=== PATIENT | male | born 1955 | race Caucasian/White ===

== ENCOUNTER 2017-08-19 06:39 | Day surgery (SDC) | payer BC ==
[~2017-08-19] VITALS: Ht 177.8 cm; Wt 101.3 kg
[~2017-08-19 06:39] MED LIST: NO HOME MEDICATIONS; NORCO 325 MG-51 TAB PO
[2017-08-19 07:03] VITALS: BP 147/82; PULSE 66; TEMP 97.3
[2017-08-19] MEDS ORDERED: PRAVACHOL 20MG20 MG PO (07:23)
[2017-08-19 10:42] VITALS: BP 115/76; PULSE 81; TEMP 97.7
[2017-08-19 10:57] VITALS: BP 108/95; PULSE 71
[2017-08-19 11:12] VITALS: BP 125/82; PULSE 68
[2017-08-19 11:27] VITALS: BP 127/86; PULSE 79
[2017-08-19 11:57] VITALS: BP 126/80; PULSE 83
== END 2017-08-19 12:35 | disposition home or self-care (01) ==
LOC: SDCO 06:39
DX: M75.122 Complete rotator cuff tear or rupture of left shoulder, not specified as traumatic (principal); M24.112 Other articular cartilage disorders, left shoulder; M19.90 Unspecified osteoarthritis, unspecified site; E78.00 Pure hypercholesterolemia, unspecified; G89.18 Other acute postprocedural pain; Z87.891 Personal history of nicotine dependence; Z89.022 Acquired absence of left finger(s); Z83.3 Family history of diabetes mellitus; Z85.828 Personal history of other malignant neoplasm of skin; Z82.49 Family history of ischemic heart disease and other diseases of the circulatory system; Z82.61 Family history of arthritis
CPT/HCPCS: C1713; J0171; J0690; J1100; J2250; J2405; J2704; J2765; J2795; J3010; J7120

== ENCOUNTER 2019-05-11 12:45 | Emergency (ER) | payer BC, MEDICARE ==
[~2019-05-11] VITALS: Ht 177.8 cm; Wt 102.3 kg
[~2019-05-11 12:45] MED LIST changes: +PRAVACHOL 20MG20 MG PO
[2019-05-11 13:00] VITALS: TEMP 96.8
[2019-05-11] MEDS ORDERED: PERCOCET 325 MG1 TA2 PO (13:03)
[2019-05-11 13:13] LABS: COLLECTION METHOD CLEAN CATCH
[2019-05-11 13:22] LABS: BASO # 0.1 (0.0-0.2); BASO % 0.5 % (0.0-2.0); EOS % 0.2 % (0-4.0); GRAN # 10.9 (1.4-6.5); GRAN % 86.9 % (42.2-75.2); HEMATOCRIT 43.5 % (42.0-52.0); HEMOGLOBIN 14.7 g/dl (13.5-18.0); LYMPH % 8.1 % (20.0-51.0); MEAN CELL VOLUME 92 fl (80.0-100.0); MEAN CORPUSCULAR HEMOGLOBIN 31 pg (27.0-31.0); MEAN CORPUSCULAR HGB CONC 34 g/dl (33.0-37.0); MEAN PLATELET VOLUME 10.5 fl (7.4-10.4); MONO # 0.5 (0.1-0.6); MONO % 3.9 % (1.7-9.3); PLATELET COUNT 207 K/mm3 (130-400); RED BLOOD COUNT 4.73 M/mm3 (4.20-5.60); REDCELL DISTRIBUTION WIDTH-CV 13.1 % (11.5-14.5)
[2019-05-11 13:27] LABS: MUCOUS Present /lpf; PH 5 (5-8); SQUAMOUS EPITHELIAL None Seen /hpf; URINE APPEARANCE Clear; URINE BACTERIA None Seen /hpf; URINE BILIRUBIN Negative (NEGATIVE); URINE BLOOD 2+ (NEGATIVE); URINE COLOR Yellow; URINE GLUCOSE Negative (NEGATIVE); URINE KETONE Negative (NEGATIVE); URINE LEUKOCYTE ESTERASE Negative (NEGATIVE); URINE NITRATE Negative (NEGATIVE); URINE PROTEIN(semi-quant) Negative (NEGATIVE); URINE UROBILINOGEN Negative (NEGATIVE)
[2019-05-11 13:37] LABS: ALANINE AMINOTRANSFERASE 48 U/L (21-72); ALBUMIN 4.5 gm/dL (3.5-5.0); ALKALINE PHOSPHATASE 72 U/L (50-136); ANION GAP 12 mmol/L (7-16); AST,SGOT 32 U/L (15-37); BILIRUBIN,TOTAL 0.6 mg/dL (0.0-1.0); BLOOD UREA NITROGEN 15 mg/dL (9-20); CALCIUM 9.5 mg/dL (8.4-10.2); CARBON DIOXIDE 24 mmol/L (22-30); CHLORIDE 108 mmol/L (98-107); CREATININE, serum 1.31 (0.66-1.25); GLUCOSE 132 mg/dL (74-106); LIPASE 63 U/L (23-300); POTASSIUM 4.3 mmol/L (3.4-5.0); SODIUM 144 mmol/L (137-145); TOTAL PROTEIN 7.7 gm/dL (6.4-8.2)
[2019-05-11 13:38] LABS: C-REACTIVE PROTEIN < 0.5 mg/dL (0.0-0.9)
[2019-05-11] MEDS ORDERED: NORCO 325 MG-51 TAB PO (13:59)
[2019-05-11 14:42] VITALS: BP 138/80; PULSE 67
== END 2019-05-11 14:45 | disposition home or self-care (01) ==
LOC: COL.ER 12:45
PROVIDERS: Family Medicine
DX: N23 Unspecified renal colic (principal); Z87.442 Personal history of urinary calculi
CPT/HCPCS: J1885; J2405; J7030

== ENCOUNTER 2021-01-05 08:57 | Day surgery (SDC) | payer BC ==
[~2021-01-05] VITALS: Ht 177.8 cm; Wt 100.8 kg
[~2021-01-05 08:57] MED LIST changes: +PERCOCET 325 MG1 TA2 PO
[2021-01-05] MEDS ORDERED: ZYLOPRIM 100MG100 MG PO (09:17)
[2021-01-05 09:31] VITALS: BP 144/95; PULSE 66; TEMP 97.8
[2021-01-05 10:55] VITALS: BP 113/72; PULSE 79; TEMP 97.2
--- NOTE | 2021-01-05 10:55 | NUR ---
The patient arrived back to [place] [facility] from the endoscopy suite at this time. The patient alert and oriented and ambulated from the cart to the recliner in his room with the stand by assistance of one nurse and appeared to tolerate the activity well. Post procedure vital signs were started at this time. The patient reqeusts to try some cranberry juice at this time. Call light is within reach. Will continue to monitor the patient.
[2021-01-05 11:10] VITALS: BP 101/65; PULSE 65
--- NOTE | 2021-01-05 11:10 | NUR ---
The patient's was brought back to be at his bedside. The patient appears to be tolerating the juice well and requests more at this time. Call light remains within reach. Will continue to monitor the patient.
[2021-01-05 11:25] VITALS: BP 116/80; PULSE 62
--- NOTE | 2021-01-05 11:25 | NUR ---
Dr. Jerry is at the patient's bedside discussing the findings of the procedure with the patient and his . Will continue to monitor the patient.
--- NOTE | 2021-01-05 11:35 | NUR ---
Discharge instructions were reviewed with the patient and his at this time. They both verbalized understanding and have no questions for the nurse at this time. The patinet's IV to his right wrist was removed and a pressure dressing was applied to the site. The nurse instructed the patient to get dressed and notify the staff when he is ready to be escorted out.
--- NOTE | 2021-01-05 11:45 | NUR ---
The patient was escorted out via wheelchair to a private vehicle by CRISS Riley. The patient's belongings and discharge paperwork were sent with him. The patient's is present to drive him home.
== END 2021-01-05 11:45 | disposition home or self-care (01) ==
LOC: SDCO 08:57
DX: Z12.11 Encounter for screening for malignant neoplasm of colon (principal); K57.30 Diverticulosis of large intestine without perforation or abscess without bleeding; J69.0 Pneumonitis due to inhalation of food and vomit; K76.0 Fatty (change of) liver, not elsewhere classified; Z85.828 Personal history of other malignant neoplasm of skin; E78.5 Hyperlipidemia, unspecified; E66.9 Obesity, unspecified; J30.2 Other seasonal allergic rhinitis; Z88.5 Allergy status to narcotic agent; Z88.1 Allergy status to other antibiotic agents; Z88.8 Allergy status to other drugs, medicaments and biological substances; M10.9 Gout, unspecified
CPT/HCPCS: J2704; J7120

== ENCOUNTER 2021-10-17 15:00 | Day surgery (SDC) | payer BC ==
[~2021-10-17] VITALS: Ht 177.8 cm; Wt 82.4 kg
[~2021-10-17 15:00] MED LIST changes: +ZYLOPRIM 100MG100 MG PO
[2021-10-17 15:45] VITALS: BP 119/68; PULSE 58; TEMP 97.4
[2021-10-17 19:00] VITALS: BP 139/62; PULSE 60; TEMP 97.2
--- NOTE | 2021-10-17 19:00 | NUR ---
Pt to the floor from PACU. Vitals stable. Pt. tolerating PO. Pt. educated on discharge criteria. Pt. voices understanding
[2021-10-17 19:15] VITALS: BP 121/55; PULSE 71; TEMP 97.2
[2021-10-17 19:30] VITALS: PULSE 89; TEMP 97.1
[2021-10-17 19:55] VITALS: BP 123/68; PULSE 75; TEMP 97.1
--- NOTE | 2021-10-17 22:10 | NUR ---
DISCHARGE CRITERIA MET. TOLERATED PO FLUIDS AND FOOD. AMBULATED TO BATHROOM AND HAD PINK URINE OUTPUT. IV TO R WRIST DC'D, BANDAID APPLIED. DISCHARGE TEACHING DONE AND FORMS SIGNED. PATIENT DC'D TO HOME WITH FAMILY VIA WHEELCHAIR BY NURSING STAFF.
== END 2021-10-17 20:00 | disposition home or self-care (01) ==
LOC: SDCO 15:00 → SURG 19:10 → SDCO 20:00
DX: N20.1 Calculus of ureter (principal); E78.5 Hyperlipidemia, unspecified; M10.9 Gout, unspecified; R10.13 Epigastric pain; Z87.442 Personal history of urinary calculi; Z85.828 Personal history of other malignant neoplasm of skin; Z79.899 Other long term (current) drug therapy; Z87.891 Personal history of nicotine dependence
CPT/HCPCS: OP; C1769; C2617; J0690; J1100; J2405; J2704; J3010; J7120; Q9967